=== PATIENT | male | born 1935 | race Caucasian/White ===

== ENCOUNTER 2023-01-02 18:35 | Inpatient (IN) | payer OTHER ==
[~2023-01-02] VITALS: Ht 180.3 cm; Wt 70.8 kg
[2023-01-02 18:47] VITALS: BP_SYST 115; PULSE 87; RESP 18; TEMP 98; O2SAT 96
[2023-01-02] MEDS ORDERED: cefTRIAXone 1 GM IVPB PREMIX 50 ML IV ONE (19:00)
[2023-01-02 19:58] LABS: ALANINE AMINOTRANSFERASE 44 U/L (12-78); ALBUMIN 2.6 g/dL (3.4-4.8); ANION GAP 10 (5-15); ASPARTATE AMINOTRANSFERASE 37 U/L (10-37); CALCIUM 9.6 mg/dL (8.4-11.0); CARBON DIOXIDE 26 mmol/L (23-29); CHLORIDE 101 mmol/L (98-107); CREATININE 0.91 mg/dL (0.55-1.30); GLUCOSE 128 mg/dL (74-106); SODIUM SERUM 137 mmol/L (136-145); TOTAL PROTEIN, SERUM 6.4 g/dL (6.4-8.3); UREA NITROGEN, BLOOD 31 mg/dL (8-21)
[2023-01-02 19:59] LABS: BASOPHILS % (AUTO) 0.1 % (0.0-2.0); EOSINOPHILS % (AUTO) 0.1 % (0.0-4.0); HEMATOCRIT 35.2 % (36-54); HEMOGLOBIN 11.8 g/dL (14.0-18.0); INFLUENZA TYPE A negative (NEGATIVE); INFLUENZA TYPE B NEGATIVE (NEGATIVE); LYMPHOCYTES # (AUTO) 1.8 K/uL (1.0-5.5); MEAN CORPUSCULAR HEMOGLOBIN 31 pg (27-31); MEAN CORPUSCULAR HGB CONC 34 % (32-36); MEAN CORPUSCULAR VOLUME 93 fL (79.0-98.0); MONOCYTES # (AUTO) 0.9 K/uL (0.0-1.0); MONOCYTES % (AUTO) 6.7 % (1.7-9.3); NEUTROPHILS # (AUTO) 10.1 K/uL (1.8-7.7); NEUTROPHILS % (AUTO) 79.1 % (40.0-70.0); PLATELET COUNT (AUTO) 308 K/uL (130-430); RED BLOOD CELL COUNT(AUTO) 3.77 MIL/uL (4.2-6.2); RED CELL DISTRIBUTION WIDTH 13.9 % (9.0-15.0); WHITE BLOOD COUNT (AUTO) 12.7 K/uL (4.8-10.8)
[2023-01-02 20:01] LABS: POTASSIUM 2.9 mmol/L (3.5-5.1)
[2023-01-02] MEDS ORDERED: POTASSIUM CHLORIDE 20 MEQ TAB.PRT.SR PO ONE (20:15)
[2023-01-02 20:53] LABS: BILIRUBIN,URINE NEGATIVE (NEGATIVE); BLOOD, URINE TRACE (NEGATIVE); CLARITY/URINE CLEAR (CLEAR); COLOR,URINE YELLOW (YELLOW); GLUCOSE,URINE NEGATIVE (NEGATIVE); KETONES,URINE NEGATIVE (NEGATIVE); LEUKOCYTE ESTERASE ,URINE NEGATIVE (NEGATIVE); NITRITE, URINE NEGATIVE (NEGATIVE); PH,URINE 6.5 (5.0-8.0); PROTEIN URINE NEGATIVE (NEGATIVE)
[2023-01-02 21:11] LABS: BACTERIA,URINE FEW /HPF (None Seen); HYALINE CASTS, URINE 0-10 /LPF (None Seen); WBC,URINE 0-3 /HPF (0-3)
[2023-01-02] MEDS ORDERED: ASPI-1393 PO (21:43)
[2023-01-02] MEDS ORDERED: FURO-149 PO (21:43)
[2023-01-02] MEDS ORDERED: METO25TA6 PO (21:43)
[2023-01-02] MEDS ORDERED: AMIO200T66 PO (21:43)
[2023-01-02] MEDS ORDERED: LATA7.5D OP (21:43)
[2023-01-02] MEDS ORDERED: FOLI-43 PO (21:43)
[2023-01-02] MEDS ORDERED: VITD400 PO (21:43)
[2023-01-02] MEDS ORDERED: LATA2.5D14 OP (21:43)
[2023-01-02] MEDS ORDERED: DORZ10DR10 EACH EYE (21:43)
[2023-01-02] MEDS ORDERED: PIPERACILLIN/TAZOBACTAM 3.375 GM/VIAL (ZOSYN) IV ONE (23:16)
[2023-01-02] MEDS: D5/0.45 NS 1,000 ML IV SCH (23:23)
[2023-01-02] MEDS: PIPERACILLIN/TAZO 3.375 GM in NS 50 ML IV SCH (23:24)
[2023-01-02] MEDS ORDERED: DIPHENHYDRAMINE INJ 50 MG/ML VIAL IVP ONE (23:30)
[2023-01-03] VITALS (10 sets, daily range): BP systolic 104–160; PULSE 80–104; RESP 18–22; TEMP 97–98; O2SAT 86–94
[2023-01-03] MEDS ORDERED: PIPERACILLIN/TAZOBACTAM 3.375 GM/VIAL (ZOSYN) IV ONE (04:45)
[2023-01-03] MEDS: PIPERACILLIN/TAZO 3.375 GM in NS 50 ML IV SCH ×3 (05:25→21:15)
[2023-01-03] MEDS ORDERED: ACETAMINOPHEN 325 MG TABLET PO PRN ×2 (06:30→06:45)
[2023-01-03 09:32] LABS: BASOPHILS % (AUTO) 0.2 % (0.0-2.0); EOSINOPHILS # (AUTO) 0.1 K/uL (0.0-0.4); EOSINOPHILS % (AUTO) 0.6 % (0.0-4.0); HEMOGLOBIN 10.9 g/dL (14.0-18.0); LYMPHOCYTES # (AUTO) 1.4 K/uL (1.0-5.5); LYMPHOCYTES % (AUTO) 15.5 % (20.5-51.5); MEAN CORPUSCULAR HEMOGLOBIN 32 pg (27-31); MEAN CORPUSCULAR HGB CONC 34 % (32-36); MEAN CORPUSCULAR VOLUME 93 fL (79.0-98.0); MONOCYTES # (AUTO) 0.5 K/uL (0.0-1.0); MONOCYTES % (AUTO) 6.1 % (1.7-9.3); NEUTROPHILS # (AUTO) 6.9 K/uL (1.8-7.7); NEUTROPHILS % (AUTO) 77.6 % (40.0-70.0); PLATELET COUNT (AUTO) 240 K/uL (130-430); RED BLOOD CELL COUNT(AUTO) 3.43 MIL/uL (4.2-6.2); RED CELL DISTRIBUTION WIDTH 13.8 % (9.0-15.0); WHITE BLOOD COUNT (AUTO) 8.9 K/uL (4.8-10.8)
[2023-01-03 09:40] LABS: INR 1.1 (0.80-1.20); PROTHROMBIN TIME 11.3 SECS (9.5-12.5)
[2023-01-03 09:41] LABS: ALANINE AMINOTRANSFERASE 33 U/L (12-78); ALBUMIN 2.1 g/dL (3.4-4.8); ANION GAP 8 (5-15); ASPARTATE AMINOTRANSFERASE 26 U/L (10-37); CALCIUM 8.7 mg/dL (8.4-11.0); CARBON DIOXIDE 27 mmol/L (23-29); CHLORIDE 105 mmol/L (98-107); CHOLESTEROL 103 mg/dL (<200); CREATININE 0.93 mg/dL (0.55-1.30); GLUCOSE 116 mg/dL (74-106); HDL CHOLESTEROL 34 mg/dL (>45); LIPASE 55 U/L (73-393); SODIUM SERUM 140 mmol/L (136-145); TOTAL BILIRUBIN 0.8 mg/dL (0.0-1.0); TOTAL PROTEIN, SERUM 5.6 g/dL (6.4-8.3); TRIGLYCERIDES 66 mg/dL (30-150); UREA NITROGEN, BLOOD 25 mg/dL (8-21)
[2023-01-03 09:55] LABS: POTASSIUM 2.9 mmol/L (3.5-5.1)
[2023-01-03] MEDS ORDERED: POTASSIUM CHLORIDE 20 MEQ/PKT PACKET PO ONE ×2 (10:00→20:45)
[2023-01-03] MEDS ORDERED: FUROSEMIDE 20 MG/2 ML VIAL IVP ONE (18:00)
[2023-01-03] MEDS: D5/0.45 NS 1,000 ML IV SCH (18:08)
[2023-01-03] MEDS: FUROSEMIDE 20 MG/2 ML VIAL IVP SCH (19:50)
[2023-01-03] MEDS ORDERED: DIPHENHYDRAMINE INJ 50 MG/ML VIAL IVP ONE (20:15)
[2023-01-03] MEDS ORDERED: FUROSEMIDE 40 MG/4 ML VIAL IVP ONE (20:45)
[2023-01-04] VITALS (7 sets, daily range): BP systolic 114–152; PULSE 96–107; RESP 18–22; TEMP 96.6–98.8; O2SAT 89–95
[2023-01-04] MEDS ORDERED: METHYLPREDNISOLONE SOD SUCC 40 MG/ML VIAL IVP ONE (02:15)
[2023-01-04] MEDS ORDERED: IPRATROPIUM/ALBUTEROL SULFATE 3 ML AMPUL.NEB (DUONEB) ONE (02:49)
[2023-01-04] MEDS: FLUTICASONE PROPIONATE 50 mCg/SPRAY 16 GM NS SCH ×2 (03:00→09:00)
[2023-01-04] MEDS: PIPERACILLIN/TAZO 3.375 GM in NS 50 ML IV SCH ×3 (05:26→21:24)
[2023-01-04 05:33] LABS: BASOPHILS % (AUTO) 0.2 % (0.0-2.0); EOSINOPHILS % (AUTO) 0.1 % (0.0-4.0); HEMATOCRIT 36.4 % (36-54); HEMOGLOBIN 12.2 g/dL (14.0-18.0); LYMPHOCYTES # (AUTO) 1.7 K/uL (1.0-5.5); LYMPHOCYTES % (AUTO) 13.9 % (20.5-51.5); MEAN CORPUSCULAR HEMOGLOBIN 32 pg (27-31); MEAN CORPUSCULAR HGB CONC 34 % (32-36); MEAN CORPUSCULAR VOLUME 94 fL (79.0-98.0); MONOCYTES # (AUTO) 0.4 K/uL (0.0-1.0); MONOCYTES % (AUTO) 3.6 % (1.7-9.3); NEUTROPHILS % (AUTO) 82.2 % (40.0-70.0); PLATELET COUNT (AUTO) 312 K/uL (130-430); RED BLOOD CELL COUNT(AUTO) 3.88 MIL/uL (4.2-6.2); RED CELL DISTRIBUTION WIDTH 14.1 % (9.0-15.0); WHITE BLOOD COUNT (AUTO) 12.1 K/uL (4.8-10.8)
[2023-01-04 05:42] LABS: ALANINE AMINOTRANSFERASE 48 U/L (12-78); ALBUMIN 2.4 g/dL (3.4-4.8); ANION GAP 11 (5-15); ASPARTATE AMINOTRANSFERASE 36 U/L (10-37); CALCIUM 9.8 mg/dL (8.4-11.0); CARBON DIOXIDE 27 mmol/L (23-29); CHLORIDE 104 mmol/L (98-107); CREATININE 1.06 mg/dL (0.55-1.30); GLUCOSE 136 mg/dL (74-106); POTASSIUM 3.4 mmol/L (3.5-5.1); SODIUM SERUM 142 mmol/L (136-145); TOTAL PROTEIN, SERUM 6.6 g/dL (6.4-8.3); UREA NITROGEN, BLOOD 20 mg/dL (8-21)
[2023-01-04 07:23] LABS: INR 1.1 (0.80-1.20); PROTHROMBIN TIME 11.5 SECS (9.5-12.5)
[2023-01-04] MEDS: FUROSEMIDE 20 MG/2 ML VIAL IVP SCH ×2 (09:00→21:23)
[2023-01-04] MEDS ORDERED: SIMETHICONE 40 MG/0.6 ML ML ONE (13:05)
[2023-01-04] MEDS ORDERED: MEPERIDINE 100 MG INJ. 100 MG/ML VIAL ONE (13:05)
[2023-01-04] MEDS ORDERED: MIDAZOLAM HCL 5 MG/5 ML VIAL ONE (13:06)
[2023-01-04] MEDS ORDERED: MEPERIDINE 100 MG INJ. 100 MG/ML VIAL IV ONE ×2 (14:00)
[2023-01-04] MEDS ORDERED: MIDAZOLAM HCL 5 MG/5 ML VIAL IVP ONE (14:00)
[2023-01-04] MEDS: METOPROLOL SUCCINATE 25 MG TAB.SR.24H (TOPROL XL) PO SCH (15:03)
[2023-01-04] MEDS: D5/0.45 NS 1,000 ML IV SCH (15:28)
[2023-01-04] MEDS: IPRATROPIUM/ALBUTEROL SULFATE 3 ML AMPUL.NEB (DUONEB) INH PRN (20:36)
[2023-01-04] MEDS ORDERED: DIPHENHYDRAMINE HCL 12.5 MG/5 ML UDC PO PRN (21:45)
[2023-01-05] VITALS (14 sets, daily range): BP systolic 130–141; PULSE 102–111; RESP 21–24; TEMP 97.5–98; O2SAT 90–95
[2023-01-05 02:27] LABS: ABG O2 SAT% ESTIMATE 92.2 % (94.0-100.0); BLOOD GAS BASE EXCESS -0.2 mmol/L (-3.0-3.0); BLOOD GAS PCO2 29.8 mmHg (32.0-45.0); BLOOD GAS PH 7.487 (7.350-7.450)
[2023-01-05 02:30] LABS: BLOOD GAS PO2 57.3 mmHg (75.0-100.0)
[2023-01-05] MEDS: IPRATROPIUM/ALBUTEROL SULFATE 3 ML AMPUL.NEB (DUONEB) INH PRN ×2 (02:36→19:59)
[2023-01-05 05:11] LABS: EOSINOPHILS % (AUTO) 0.1 % (0.0-4.0); HEMATOCRIT 34.8 % (36-54); HEMOGLOBIN 11.5 g/dL (14.0-18.0); LYMPHOCYTES # (AUTO) 1.3 K/uL (1.0-5.5); LYMPHOCYTES % (AUTO) 11.3 % (20.5-51.5); MEAN CORPUSCULAR HEMOGLOBIN 31 pg (27-31); MEAN CORPUSCULAR HGB CONC 33 % (32-36); MEAN CORPUSCULAR VOLUME 93 fL (79.0-98.0); MONOCYTES # (AUTO) 0.3 K/uL (0.0-1.0); NEUTROPHILS # (AUTO) 9.6 K/uL (1.8-7.7); NEUTROPHILS % (AUTO) 85.6 % (40.0-70.0); PLATELET COUNT (AUTO) 289 K/uL (130-430); RED BLOOD CELL COUNT(AUTO) 3.73 MIL/uL (4.2-6.2); RED CELL DISTRIBUTION WIDTH 13.8 % (9.0-15.0); WHITE BLOOD COUNT (AUTO) 11.2 K/uL (4.8-10.8)
[2023-01-05 05:45] LABS: ANION GAP 11 (5-15); CALCIUM 9.5 mg/dL (8.4-11.0); CARBON DIOXIDE 27 mmol/L (23-29); CHLORIDE 105 mmol/L (98-107); CREATININE 0.88 mg/dL (0.55-1.30); GLUCOSE 149 mg/dL (74-106); SODIUM SERUM 143 mmol/L (136-145); UREA NITROGEN, BLOOD 24 mg/dL (8-21)
[2023-01-05 05:47] LABS: POTASSIUM 2.8 mmol/L (3.5-5.1)
[2023-01-05] MEDS: PIPERACILLIN/TAZO 3.375 GM in NS 50 ML IV SCH ×3 (05:53→21:06)
[2023-01-05] MEDS ORDERED: POTASSIUM CHLORIDE 20 MEQ TAB.PRT.SR PO ONE (06:15)
[2023-01-05 09:26] LABS: BASOPHILS % (AUTO) 0.1 % (0.0-2.0); EOSINOPHILS % (AUTO) 0.1 % (0.0-4.0); HEMATOCRIT 36.4 % (36-54); LYMPHOCYTES # (AUTO) 1.4 K/uL (1.0-5.5); LYMPHOCYTES % (AUTO) 9.8 % (20.5-51.5); MEAN CORPUSCULAR HEMOGLOBIN 31 pg (27-31); MEAN CORPUSCULAR HGB CONC 33 % (32-36); MEAN CORPUSCULAR VOLUME 94 fL (79.0-98.0); MONOCYTES # (AUTO) 0.5 K/uL (0.0-1.0); MONOCYTES % (AUTO) 3.4 % (1.7-9.3); NEUTROPHILS # (AUTO) 12.3 K/uL (1.8-7.7); NEUTROPHILS % (AUTO) 86.6 % (40.0-70.0); PLATELET COUNT (AUTO) 310 K/uL (130-430); RED BLOOD CELL COUNT(AUTO) 3.87 MIL/uL (4.2-6.2); WHITE BLOOD COUNT (AUTO) 14.2 K/uL (4.8-10.8)
[2023-01-05] MEDS: FUROSEMIDE 20 MG/2 ML VIAL IVP SCH ×2 (10:41→21:06)
[2023-01-05] MEDS: METOPROLOL SUCCINATE 25 MG TAB.SR.24H (TOPROL XL) PO SCH (10:42)
[2023-01-05] MEDS: D5/0.45 NS 1,000 ML IV SCH (10:45)
[2023-01-05] MEDS: FLUTICASONE PROPIONATE 50 mCg/SPRAY 16 GM NS SCH (10:45)
[2023-01-05] MEDS ORDERED: COMMUNICATION ORDER XX ONE (18:00)
[2023-01-05] MEDS ORDERED: LATANOPROST 2.5 ML DROPS (XALATAN) OP SCH (18:00)
[2023-01-05] MEDS ORDERED: DORZOLAMIDE HCL/TIMOLOL MAL. 10 ML EYE DROPS (COSOPT) OP SCH (18:00)
[2023-01-05] MEDS ORDERED: [UNRECOGNIZED DRUG - OTHER] PO PRN (18:15)
[2023-01-05] MEDS: COSOPT OP SCH (21:00)
[2023-01-05] MEDS: LATANOPROST OP SCH (21:00)
[2023-01-05] MEDS: methylPREDNISolone SOD SUCC/PF 62.5 MG/ML VIAL IVP SCH (21:09)
[2023-01-06] VITALS (12 sets, daily range): BP systolic 131–149; PULSE 61–108; RESP 20–26; TEMP 97.2–98; O2SAT 90–94
[2023-01-06] MEDS: D5/0.45 NS 1,000 ML IV SCH (05:54)
[2023-01-06] MEDS: PIPERACILLIN/TAZO 3.375 GM in NS 50 ML IV SCH ×3 (05:54→21:11)
[2023-01-06] MEDS ORDERED: POTASSIUM CHLORIDE 20 MEQ/PKT PACKET PO ONE (07:45)
[2023-01-06] MEDS: FLUTICASONE PROPIONATE 50 mCg/SPRAY 16 GM NS SCH (09:58)
[2023-01-06] MEDS: FUROSEMIDE 20 MG/2 ML VIAL IVP SCH ×2 (10:02→21:00)
[2023-01-06] MEDS: methylPREDNISolone SOD SUCC/PF 62.5 MG/ML VIAL IVP SCH ×2 (10:06→21:00)
[2023-01-06] MEDS: METOPROLOL SUCCINATE 25 MG TAB.SR.24H (TOPROL XL) PO SCH (10:07)
[2023-01-06] MEDS: COSOPT OP SCH ×2 (10:16→21:00)
[2023-01-06] MEDS ORDERED: KCL 40 mEq in 100 mL (PREMIX) 100 ML IV ONE (10:30)
[2023-01-06] MEDS: POTASSIUM CHLORIDE 20 mEq in 100 mL (PREMIX) 100 ML x 2 doses IV SCH ×2 (10:30→12:30)
[2023-01-06] MEDS ORDERED: KCL 30mEq in D5/0.45NS 1000 mL 1,000 ML IV SCH (12:00)
[2023-01-06] MEDS ORDERED: MORPHINE 4 MG INJ. 4 MG/ML VIAL IVP PRN (12:00)
[2023-01-06] MEDS ORDERED: ACETAMINOPHEN 500 MG TABLET PO PRN (14:00)
[2023-01-06] MEDS ORDERED: LORazepam 2 MG/ML VIAL IVP PRN (14:15)
[2023-01-06] MEDS: MORPHINE SULFATE IN 0.9 % NACL 100 ML IV PRN (17:54)
[2023-01-06] MEDS: LATANOPROST OP SCH (21:00)
[2023-01-07] VITALS (8 sets, daily range): BP systolic 98–144; PULSE 57–109; RESP 12–21; TEMP 96.1–97.6; O2SAT 70–94
[2023-01-07] MEDS: MORPHINE SULFATE IN 0.9 % NACL 100 ML IV PRN (14:17)
== END 2023-01-07 22:29 | DRG 180 ==
LOC: SED 18:35 → SMU 21:23 → STU 01-03 10:12
PROVIDERS: ADMIT Specialist; ATTEND Specialist
PROC: 0DB68ZX Excision of Stomach, Via Natural or Artificial Opening Endoscopic, Diagnostic (ICD-10-PCS; principal; 2023-01-04 13:00)
PROC: 5A09457 Assistance with Respiratory Ventilation, 24-96 Consecutive Hours, Continuous Positive Airway Pressure (ICD-10-PCS; 2023-01-05)
DX: C7A.090 Malignant carcinoid tumor of the bronchus and lung (principal); I50.43 Acute on chronic combined systolic (congestive) and diastolic (congestive) heart failure; J96.01 Acute respiratory failure with hypoxia; R65.10 Systemic inflammatory response syndrome (SIRS) of non-infectious origin without acute organ dysfunction; I42.0 Dilated cardiomyopathy; I11.0 Hypertensive heart disease with heart failure; J84.10 Pulmonary fibrosis, unspecified; K29.70 Gastritis, unspecified, without bleeding; K22.70 Barrett's esophagus without dysplasia; I25.5 Ischemic cardiomyopathy; I48.0 Paroxysmal atrial fibrillation; Z20.822 Contact with and (suspected) exposure to COVID-19; R53.81 Other malaise; K44.9 Diaphragmatic hernia without obstruction or gangrene; R62.7 Adult failure to thrive; K21.00 Gastro-esophageal reflux disease with esophagitis, without bleeding; I25.10 Atherosclerotic heart disease of native coronary artery without angina pectoris; Z79.899 Other long term (current) drug therapy; Z79.82 Long term (current) use of aspirin; Z86.010 Personal history of colon polyps; Z95.810 Presence of automatic (implantable) cardiac defibrillator; Z79.01 Long term (current) use of anticoagulants; Z68.21 Body mass index [BMI] 21.0-21.9, adult; D3A.092 Benign carcinoid tumor of the stomach
CPT/HCPCS: 36415; 36600; 43239; 71045; 71250-TC; 76376; 80048; 80053; 80061; 81000; 82803; 83605; 83690; 83735; 83880; 84484; 85025; 85610-TC; 85730-TC; 87040; 87086; 88305; 88312; 88313; 88341; 88342; 88361; 92610-GN; 93005; 93306; 94640; 94660; 94760; 96365; 99285; G0378; J0696; J1200; J1940; J2060; J2175; J2250; J2270; J2543; J2930; J7030; J7060